=== PATIENT | male | born 1950 | race Caucasian/White ===

== ENCOUNTER 2019-07-26 11:52 | Observation (INO) | payer MEDICARE, OTHER ==
[~2019-07-26] VITALS: Ht 172.7 cm; Wt 72.6 kg
[2019-07-26 11:53] VITALS: BP 98/64
[2019-07-26] MEDS ORDERED: ASA81BEC PO (12:03)
[2019-07-26] MEDS ORDERED: LIPITOR20 MG PO (12:04)
[2019-07-26] MEDS ORDERED: BRILINTA90 MG PO (12:04)
[2019-07-26] MEDS ORDERED: COZAAR 25 MG TA25 MG PO (12:04)
[2019-07-26] MEDS ORDERED: NORVASC 2.5 MG2.5 M1 PO (12:05)
[2019-07-26] MEDS ORDERED: MICROZIDE12.5 MG PO (12:05)
[2019-07-26] MEDS ORDERED: PLAQUENIL200 MG PO (12:07)
[2019-07-26 12:20] LABS: ABSOLUTE EOSINOPHILS 0.1 thou/uL (0.0-0.7); ABSOLUTE LYMPHOCYTES 1.2 thou/uL (0.8-5.3); ABSOLUTE MONOCYTES 0.4 thou/uL (0.0-1.2); ABSOLUTE NEUTROPHILS 5.4 thou/uL (1.6-8.1); BASOPHILS 0.5 %; EOSINOPHILS 1.7 %; HEMATOCRIT 40.7 % (42.0-52.0); MCHC 34.5 g/dL (28.0-37.0); MCV 92.9 fL (80.0-100.0); MONOCYTES 6.2 %; MPV 8.5 fl. (7.2-11.1); NUCLEATED RBCS 0 /100WBC; PLATELET COUNT* 244 thou/uL (150-400); POLYS 74.6 %; RBC 4.38 mil/uL (4.50-6.00); RDW-CV 13.3 % (10.5-14.5); WBC 7.2 thou/uL (4.0-11.0)
[2019-07-26 12:30] LABS: CALCIUM 8.1 mg/dL (8.5-10.1); CREATININE 1.1 mg/dL (0.6-1.3)
[2019-07-26 12:34] LABS: POTASSIUM 2.6 mmol/L (3.5-5.1)
[2019-07-26 12:35] LABS: ALBUMIN 3.4 g/dL (3.4-5.0); TOTAL BILIRUBIN 0.6 mg/dL (<0.1-1.0)
[2019-07-26 15:14] LABS: URINE BILIRUBIN NEGATIVE (Negative); URINE BLOOD NEGATIVE (Negative); URINE CLARITY CLEAR; URINE COLOR YELLOW; URINE GLUCOSE-RANDOM NEGATIVE (Negative); URINE KETONES NEGATIVE (Negative); URINE LEUKOCYTES-REFLEX NEGATIVE (Negative); URINE NITRITE-REFLEX NEGATIVE (Negative); URINE PROTEIN NEGATIVE (Negative); URINE SPECIFIC GRAVITY 1.015 (1.005-1.030); URINE UROBILINOGEN 0.2 E.U./dl (0.2-1.0)
[2019-07-26 16:12] VITALS: BP 120/75
[2019-07-26 18:20] VITALS: BP 115/75
--- NOTE | 2019-07-26 18:35 | NUR ---
PT ORIENTED TO ROOM AND UNIT. BED LOW AND LOCKED, SIDE RIALS UPX3 CALL LIGHT IN REACH. TELE APPLIED.
[2019-07-26 20:20] VITALS: BP 116/78
[2019-07-27 03:54] LABS: MAGNESIUM 1.9 mg/dL (1.8-2.4); PHOSPHORUS* 2.9 mg/dL (2.5-4.9)
[2019-07-27 04:00] VITALS: BP 108/62
--- NOTE | 2019-07-27 04:23 | NUR ---
PT TELE JUST PRIOR TO MIDNIGHT SR/SB W/1ST AVB. THEN 0400 CHECK APPEARED TO BE CHANGED FROM THAT SO WENT AHEAD AND DID AM ORDERED EKG AND IT SHOWED ACC. JUNCTIONAL RHYTHM HR 72. PT ASYMPTOMATIC WITH. CALL PLACED TO DR. FORBES TO MAKE HER AWARE AND ADD ON BMP. SHE SAID CARDS SHOULD SEE HIM THIS MORNING BUT SHOULD PT BECOME SYMPTOMATIC, STAT EKG AND CALL HER BACK TO CHANGE POC. PT HAS REMAINED NPO SINCE MIDNIGHT AND NOT VERY HAPPY WITH IT BUT COMPLIANT.
[2019-07-27 06:10] LABS: POTASSIUM 2.9 mmol/L (3.5-5.1)
[2019-07-27 07:45] VITALS: BP 104/67
[2019-07-27] MEDS ORDERED: POTASSIUM20 PO (12:10)
[2019-07-27 12:31] VITALS: BP 121/71
--- NOTE | 2019-07-27 12:31 | EKG ---
[place] [address] ELECTROCARDIOGRAM REPORT Name: MARCIA NAPOLES Room: [address]R.#: [id number] Admission: 07/26/19 Attend Phys: Lei Decker Discharge: Date of : 48 Report #: [id number] THIS REPORT FOR: //name// [facility] Test Date: 2019-07-27 Test Time: 10:55:50 Pat Name: MARCIA NAPOLES Department: Room: [place] [address] Gender: M Billing Administrator: : 1950 Requested By: Lei Zayas Order Number: [id number] Fina MD: Rudolph Bower Measurements Intervals [place] Rate: 61 P: -21 KS: 251 QRS: -44 QRSD: 103 T: 23 QT: 432 QTc: 435 Interpretive Statements Sinus rhythm Prolonged [place] interval Left axis deviation Abnormal R-wave progression, late transition Baseline wander in lead(s) V1,V2,V4,V5,V6 No previous ECG available for comparison Electronically Signed On 07-27-2019 12:30:37 INTRANET SPECIALIST by Rudolph Bower [email or web address] <ELECTRONICALLY SIGNED> By: Rudolph Bower MD, FAC 07/27/19 1230 1055 1055 Rudolph Bower MD, [facility] /EPI
[2019-07-27 14:50] VITALS: BP 121/71
[2019-07-27 15:22] LABS: CALCIUM 8.8 mg/dL (8.5-10.1); CREATININE 1.1 mg/dL (0.6-1.3); POTASSIUM 3.8 mmol/L (3.5-5.1)
--- NOTE | 2019-07-27 15:59 | NUR ---
RECEVIED REPORT. ASSUMED CARE OF PT AROUND 729. PT A&O X4. VSS. DATA KEYER IN PLACE TRACING SR WITH 1ST DEGREE TO SR WITH 1ST DEGREE AND A BBB. AM ASSESSMENT AND VITALS COMPLETED CHARTED. IV INTACT. MEDS PER EMAR. PT HOPING TO GO HOME. AT BEDSIDE. POTASSIUM REPLACED ORDERED. DISCHARGE ORDERS RECEIVED. DISCHARGE COMPLETED DOCUMENTED. DISCHARGE SUMMARY, AND CARE NOTES GONE OVER WITH PT, PT COMMUNICATES UNDERSTANDING. SCRIPT SENT TO PT'S PHARMACY. IV AND DATA KEYER REMOVED. ALL BELONGINGS GATHERED AND SENT HOME WITH THE PT. PT LEFT UNIT WALKING WITH NURSING STAFF.PT LEFT HOSPITAL IN CAR WITH SPOUSE.
--- NOTE | 2019-07-28 10:25 | CON ---
[address] [address] CONSULTATION Name: MARCIA NAPOLES Room: [address] Jacqueline Gimenez#: [id number] Admission: 07/26/19 Attend Phys: Lei Decker Discharge: 07/27/19 Date of : 48 Report #: [id number] THIS REPORT FOR: //name// CC: Dr. Wilfrido Dong DO DATE OF SERVICE: 07/27/2019 INDICATION: Near syncope. HISTORY OF PRESENT ILLNESS: The patient is a very pleasant 69-year-old gentleman with a history of coronary artery disease diagnosed in 02/2019. At that time, he had a non-ST elevation myocardial infarction. On 02/27/2019, he had percutaneous coronary intervention and stent placement to the right coronary artery. He had percutaneous coronary intervention and stenting of the LAD in staged fashion on 03/24/2019. He remains on dual antiplatelet therapy. Symptoms at the time of his initial non-ST elevation myocardial infarction included belching, queasiness, and abdominal discomfort without specific chest pain. The patient reports an episode of near syncope yesterday. He recently completed cardiac rehabilitation and was starting a gym membership at a local gym. He and his presented to the gym at approximately 11:00. He walked around the track for 14 minutes and then sat on a bench when he began to feel somewhat queasy and dizzy. At this point, he decided he likely should go home. He walked up some stairs to find his who was finishing her exercises. He sat back down on a bench at that time waiting for her to complete exercise, at which time he became more queasy and lightheaded. He became near syncopal and rolled off the bench onto his right shoulder. He was unable to get back on all fours and sit back on the bench. Despite this, he continued to feel quite queasy and sleepy. The patient's reports him being very pale, but not diaphoretic. EMS was summoned and arrived at the scene and transported him to the hospital for further evaluation. Throughout this, he denied any chest pain. He was trying some deep breathing, which he has found relieves his uneasy queasy feelings typically, but did not this time. Historically, he has been having minor queasy episodes on a daily or every other day basis, lasting approximately 30 seconds, but reports these cornelio after taking a few deep breaths. Cardiac risk factors include hypertension and family history of coronary artery disease. The patient states he has not had high cholesterol traditionally. He is currently on a low-dose atorvastatin. A 12-lead EKG on arrival showed a sinus bradycardia with first-degree AV block with a [place] interval of [address] or T-wave abnormalities were noted. Subsequent EKGs and telemetry monitoring [place] [address] CONSULTATION Name: MARCIA NAPOLES Room: [place] [address] LLOYD Gimenez#: [id number] Admission: 07/26/19 Attend Phys: Lei Decker Discharge: 07/27/19 Date of : 48 Report #: [id number] in the 70s with retrograde conduction noted. Cardiac enzymes have been unremarkable. PAST MEDICAL HISTORY: 1. Coronary artery disease with recent intervention as outlined above. 2. Hypertension. 3. History of type 1 second-degree AV block. 4. Herniorrhaphy remotely. 5. Bilateral cataract surgery. ALLERGIES: None. HOME MEDICATIONS: Amlodipine 2.5 mg daily, aspirin 81 mg daily, atorvastatin 20 mg daily, hydrochlorothiazide 12.5 mg daily, Plaquenil 200 mg daily, losartan 25 mg daily, Brilinta 90 mg b.i.d. SOCIAL HISTORY: The patient is a lifelong nonsmoker. Drinks alcohol occasionally. He is and his is in attendance with him. FAMILY HISTORY: The patient's maternal relatives had coronary artery disease. The patient's mother with Alzheimer's and father with a cancer. PHYSICAL EXAMINATION: VITAL SIGNS: Stable. Blood pressure 104/67, pulse 62. GENERAL: This is a pleasant gentleman, in no distress. Mood and affect appropriate. HEENT: Extraocular muscles intact. Mucous membranes are moist. NECK: Shows no jugular venous distention. There are no carotid bruits. CHEST: Reveals clear lung tracy without wheezes or rales. CARDIOVASCULAR: Reveals a regular rhythm. I do not appreciate gallop or murmur. ABDOMEN: Reveals normal bowel sounds. The abdomen is soft and nontender. EXTREMITIES: Shows no edema. Peripheral pulses are 2+ and palpable. SKIN: Warm and dry. LABORATORY DATA: Reviewed. Sodium 140, potassium 2.9, chloride 102, bicarb 25, BUN 16, creatinine 1.0. Serum glucose 101. LFTs are within normal limits. Troponins less than 0.06 on three separate occasions. White blood cell count 7.2, hemoglobin 14.0, platelet count 244,000. Chest x-ray shows no acute cardiopulmonary abnormality. IMPRESSION AND RECOMMENDATIONS: 1. Near syncope. Etiology not entirely clear. The patient does have some evidence of atrioventricular block with current junctional rhythm. He has recently completed a 5-day event monitor with the results pending. He is to [address] [address] CONSULTATION Name: MARCIA NAPOLES Room: [address] Jacqueline Gimenez#: [id number] Admission: 07/26/19 Attend Phys: Lei anand jade Ott Discharge: 07/27/19 Date of : 48 Report #: [id number] follow up with his primary surveillance inspector in the near future regarding this. Blood pressure appears stable. I suspect he may have had either an episode of hypotension or bradycardia contributing to his near syncopal symptoms. At this point, I would have him follow up with his primary surveillance inspector regarding his 5-day event monitor. 2. Coronary artery disease, presently stable. Recent intervention as outlined above. He is on dual antiplatelet therapy, which I would continue. He is not having any symptoms to suggest acute coronary syndrome at this time. 3. Hypertension. Blood pressure low normal presently. He is on appropriate medications outlined above. 4. Hypokalemia, likely due to hydrochlorothiazide. I would recommend daily supplement of 20 mEq. We will start this in the hospital and offer replacement therapy as well. 5. Probable dyslipidemia. Continue atorvastatin at current dose. <ELECTRONICALLY SIGNED> By: Олег Taylor MD, [facility] 07/28/19 1025 1102 2143Michael Malcolm Taylor MD, FACC /nt
--- NOTE | 2019-07-28 12:18 | EKG ---
[place] [address] ELECTROCARDIOGRAM REPORT Name: MARCIA NAPOLES Room: [address]#: [id number] Admission: 07/26/19 Attend Phys: Lei Decker Discharge: 07/27/19 Date of : 48 Report #: [id number] THIS REPORT FOR: //name// [facility] ED Test Date: 2019-07-26 Test Time: 12:06:42 Pat Name: MARCIA NAPOLES Department: Room: [facility] Gender: M Water Use Inspector: [place] : 1950 Requested By: Reginaldo Sauceda Order Number: [id number] MD: Darrel Barrow Measurements Intervals [place] Rate: 57 P: -10 SC: 315 QRS: -64 QRSD: 112 T: 31 QT: 463 QTc: 451 Interpretive Statements Sinus rhythm Prolonged [place] interval LAD, consider left anterior fascicular block Abnormal R-wave progression, late transition No previous ECG available for comparison Electronically Signed On 07-28-2019 12:18:04 HOST AND HOSTESS by Darrel Barrow [email or web address] <ELECTRONICALLY SIGNED> By: Darrel Barrow MD, [facility] 07/28/19 1218 1206 1206 Darerl Barrow MD, [facility] /EPI
--- NOTE | 2019-07-28 12:29 | EKG ---
[place] [address] ELECTROCARDIOGRAM REPORT Name: MARCIA NAPOLES Room: [address]#: [id number] Admission: 07/26/19 Attend Phys: Lei Decker Discharge: 07/27/19 Date of : 48 Report #: [id number] THIS REPORT FOR: //name// [facility] Test Date: 2019-07-27 Test Time: 04:01:23 Pat Name: MARCIA NAPOLES Department: Room: [place] [address] Gender: M Registered Safety Engineer: ca : 1950 Requested By: Lei Zayas Order Number: [id number] Fina MD: Darrel Barrow Measurements Intervals [place] Rate: 72 P: NV: QRS: -19 QRSD: 98 T: 20 QT: 327 QTc: 358 Interpretive Statements Accelerated junctional rhythm Borderline left axis deviation Abnormal R-wave progression, late transition No previous ECG available for comparison Electronically Signed On 07-28-2019 12:29:00 COORDINATING PRODUCER by Darrel Barrow [email or web address] <ELECTRONICALLY SIGNED> By: Darrel Barrow MD, [facility] 07/28/19 1229 0401 040 Darrel Barrow MD, [facility] /EPI
== END 2019-07-27 15:55 | disposition home or self-care (01) ==
LOC: M.ERS 11:52 → M.2W 13:18 → M.TBA-ER 13:18 → M.2W 18:31
PROVIDERS: Emergency Medicine Emergency Medical Services; ADMIT Family Medicine
DX: R55 Syncope and collapse (principal); E87.6 Hypokalemia; I10 Essential (primary) hypertension; E78.5 Hyperlipidemia, unspecified; I25.10 Atherosclerotic heart disease of native coronary artery without angina pectoris; I49.9 Cardiac arrhythmia, unspecified; M06.9 Rheumatoid arthritis, unspecified

== ENCOUNTER → 2020-01-18 | Outpatient (CLI) | payer OTHER ==
[~2020-01-18] MED LIST: ASA81BEC PO; BRILINTA90 MG PO; COZAAR 25 MG TA25 MG PO; LIPITOR20 MG PO; MICROZIDE12.5 MG PO; NORVASC 2.5 MG2.5 M1 PO; PLAQUENIL200 MG PO; POTASSIUM20 PO
--- NOTE | 2020-01-18 13:33 | 2DMMODE ---
[place] [address] 2 D/M-MODE ECHOCARDIOGRAM Name: MARCIA NAPOLES Room: [facility]#: [id number] Admission: 01/18/20 Attend Phys: Twin Gallagher MD Discharge: Date of : 48 Date of Service: 01/18/20 1332 Report #: [id number] THIS REPORT FOR: cc: Ayla Williamson Stephanie P. DO Holkins, John M. MD [facility] ~ APPROVED REPORT Study performed: 01/18/2020 09:05:44 EXAM: Comprehensive 2D, Doppler, and color-flow Echocardiogram Patient Location: Out-Patient BSA: 1.87 HR: 62 bpm BP: 121/60 mmHg Other Information Study Quality: Good Indications CAD 2D Dimensions IVSd: 13.32 (7-11mm) LVOT Diam: 20.81 (18-24mm) LVDd: 47.73 mm PWd: 11.42 (7-11mm) Ascending Ao: 37.99 (22-36mm) LVDs: 25.22 (25-40mm) Aortic Root: 35.05 mm Volumes Left Atrial Volume (Systole) LA ESV Index: 15.60 mL/m2 Aortic Valve AoV Peak Rick.: 1.12 m/s AO Peak Gr.: 5.05 mmHg LVOT Max P.43 mmHg AO Mean Gr.: 2.73 mmHg LVOT Mean P.20 mmHg LVOT Max V: 1.05 m/s AO V2 VTI: 24.03 cm LVOT Mean V: 0.68 m/s ROVERTO (VTI): 3.12 cm2 LVOT V1 VTI: 22.07 cm Mitral Valve E/A Ratio: 0.54 [place] [address] 2 D/M-MODE ECHOCARDIOGRAM Name: MARCIA NAPOLES Room: [facility]#: [id number] Admission: 01/18/20 Attend Phys: Twin Gallagher MD Discharge: Date of : 48 Date of Service: 01/18/20 1332 Report #: [id number] MV Decel. Time: 244.49 ms MV E Max Rick.: 0.42 m/s MV PHT: 70.90 ms MVA (PHT): 3.10 cm2 TDI E/Lateral E': 5.25 E/Medial E': 7.00 Medial E' Rick.: 0.06 m/s Lateral E' Rick.: 0.08 m/s Pulmonary Valve PV Peak Rick.: 0.91 m/s PV Peak Gr.: 3.34 mmHg Tricuspid Valve RAP Estimate: 5.00 mmHg TR Peak Gr.: 18.51 mmHg RVSP: 23.51 mmHg PA Pressure: 23.51 mmHg Left Ventricle The left ventricle is normal size. There is normal LV segmental wall motion. Mild concentric left ventricular hypertrophy. Left ventricular systolic function is normal. The left ventricular ejection fraction is within the normal range. LVEF is 55-60%. Grade I - abnormal relaxation pattern. Right Ventricle The right ventricle is normal size. The right ventricular systolic function is normal. Atria The left atrium size is normal. The right atrium size is normal. Aortic Valve Mild aortic valve sclerosis. Mild aortic regurgitation. There is no aortic valvular stenosis. Mitral Valve Mild mitral annular calcification. Mild mitral regurgitation. No evidence of mitral valve stenosis. Tricuspid Valve The tricuspid valve is normal in structure. Mild tricuspid [place]urgitation[place] [address] 2 D/M-MODE ECHOCARDIOGRAM Name: MARCIA NAPOLES Room: [facility]#: [id number] Admission: 01/18/20 Attend Phys: Twin Gallagher MD Discharge: Date of : 48 Date of Service: 01/18/20 1332 Report #: [id number] The pulmonary valve is normal in structure. There is no pulmonic valvular regurgitation. Great Vessels The aortic root is normal in size. IVC is normal in size and collapses >50% with inspiration. Pericardium There is no pericardial effusion. <Conclusion> The left ventricle is normal size. Mild concentric left ventricular hypertrophy. Left ventricular systolic function is normal. The left ventricular ejection fraction is within the normal range. LVEF is 55-60%. Grade I - abnormal relaxation pattern. The right ventricle is normal size. The left atrium size is normal. Mild aortic valve sclerosis. Mild aortic regurgitation. There is no aortic valvular stenosis. Mild mitral annular calcification. Mild mitral regurgitation. No evidence of mitral valve stenosis. The tricuspid valve is normal in structure. Mild tricuspid regurgitation. IVC is normal in size and collapses >50% with inspiration. There is no pericardial effusion. There is normal LV segmental wall motion. <ELECTRONICALLY SIGNED> By: Darrel Barrow MD, FACC 01/18/20 133 31 31 Darrel Barrow MD, FACC /INF
== END ==
LOC: M.CRD 08:48
PROVIDERS: ATTEND Orthopaedic Surgery
DX: I08.3 Combined rheumatic disorders of mitral, aortic and tricuspid valves (principal); I25.10 Atherosclerotic heart disease of native coronary artery without angina pectoris

== ENCOUNTER → 2021-02-28 | Outpatient (CLI) | payer OTHER ==
[2021-02-28 08:50] LABS: CALCIUM 8.6 mg/dL (8.5-10.1); POTASSIUM 4.2 mmol/L (3.5-5.1)
== END ==
LOC: M.LAB 08:21
PROVIDERS: ATTEND Internal Medicine Cardiovascular Disease
DX: I10 Essential (primary) hypertension (principal); E87.6 Hypokalemia

== ENCOUNTER → 2021-06-18 | Outpatient (CLI) | payer OTHER ==
[2021-06-18 13:31] LABS: ALBUMIN 3.7 g/dL (3.4-5.0); CALCIUM 8.6 mg/dL (8.5-10.1); CREATININE 0.9 mg/dL (0.6-1.3); MAGNESIUM 2.2 mg/dL (1.8-2.4); POTASSIUM 4.1 mmol/L (3.5-5.1); TOTAL BILIRUBIN 0.5 mg/dL (<0.1-1.0); TOTAL PROTEIN 7.3 g/dL (6.4-8.2)
== END ==
LOC: M.LAB 13:05
PROVIDERS: ATTEND Nurse Practitioner
DX: I44.30 Unspecified atrioventricular block (principal); I10 Essential (primary) hypertension

== ENCOUNTER → 2021-07-01 | Outpatient (CLI) | payer OTHER ==
--- NOTE | 2021-07-01 11:13 | 2DMMODE ---
[place] [address] 2 D/M-MODE ECHOCARDIOGRAM Name: MARCIA NAPOLES Room: [facility]#: [id number] Admission: 07/01/21 Attend Phys: Georgina Pak, Discharge: Date of : 48 Date of Service: 07/01/21 1113 Report #: [id number] THIS REPORT FOR: cc: FAM - No family physician/PCP FAM - No family physician/PCP Rudolph Bower MD [facility] ~ APPROVED REPORT Study performed: 07/01/2021 09:08:15 EXAM: Comprehensive 2D, Doppler, and color-flow Echocardiogram Patient Location: Out-Patient BSA: 1.89 HR: 52 bpm BP: 123/61 mmHg Other Information Study Quality: Good Indications Dyspnea 2D Dimensions IVSd: 11.47 (7-11mm) LVOT Diam: 20.50 (18-24mm) LVDd: 49.44 mm PWd: 11.08 (7-11mm) Ascending Ao: 40.03 (22-36mm) LVDs: 27.43 (25-40mm) Aortic Root: 38.13 mm Volumes Left Atrial Volume (Systole) LA ESV Index: 15.90 mL/m2 Aortic Valve AoV Peak Rick.: 1.19 m/s AO Peak Gr.: 5.62 mmHg LVOT Max P.36 mmHg AO Mean Gr.: 2.92 mmHg LVOT Mean P.34 mmHg LVOT Max V: 1.16 m/s AO V2 VTI: 23.26 cm LVOT Mean V: 0.69 m/s ROVERTO (VTI): 3.73 cm2 LVOT V1 VTI: 26.29 cm AI Eaton: 1.71 m/s2 AI PHT: 634.35 [place] [address] 2 D/M-MODE ECHOCARDIOGRAM Name: MARCIA NAPOLES Room: [facility]#: [id number] Admission: 07/01/21 Attend Phys: Georgina Pak, Discharge: Date of : 48 Date of Service: 07/01/21 1113 Report #: [id number] Mitral Valve E/A Ratio: 0.62 MV Decel. Time: 325.29 ms MV E Max Rick.: 0.55 m/s MV PHT: 94.34 ms MVA (PHT): 2.33 cm2 TDI E/Lateral E': 6.11 E/Medial E': 7.86 Medial E' Rick.: 0.07 m/s Lateral E' Rick.: 0.09 m/s Pulmonary Valve PV Peak Rick.: 0.87 m/s PV Peak Gr.: 3.01 mmHg Left Ventricle The left ventricle is normal size. There is normal LV segmental wall motion. There is normal left ventricular wall thickness. Left ventricular systolic function is normal. The left ventricular ejection fraction is within the normal range. LVEF is 55-60%. Grade I - abnormal relaxation pattern. Right Ventricle The right ventricle is normal size. The right ventricular systolic function is normal. Atria The left atrium size is normal. The right atrium size is normal. Aortic Valve The aortic valve is normal in structure. Mild aortic regurgitation. There is no aortic valvular stenosis. Mitral Valve Moderate mitral annular calcification. The mitral valve is normal in structure. Mild mitral regurgitation. No evidence of mitral valve stenosis. Tricuspid Valve The tricuspid valve is normal in structure. There is no tricuspid valve regurgitation noted. Pulmonic Valve The pulmonary valve is normal in structure. [place] [address] 2 D/M-MODE ECHOCARDIOGRAM Name: MARCIA NAPOLES Room: [facility]#: [id number] Admission: 07/01/21 Attend Phys: Georgina Pak, Discharge: Date of : 48 Date of Service: 07/01/21 1113 Report #: [id number] Great Vessels Aortic root is mildly dilated. IVC is normal in size and collapses >50% with inspiration. Pericardium There is no pericardial effusion. <Conclusion> LVEF is 55-60%. Mild aortic regurgitation. Mild mitral regurgitation. Aortic root is mildly dilated. <ELECTRONICALLY SIGNED> By: Rudolph Bower MD, [facility] 07/01/21 111 12 12 Rudolph Bower MD, FAC /INF
== END ==
LOC: M.CRD 07:35
PROVIDERS: ATTEND Nurse Practitioner
DX: I08.0 Rheumatic disorders of both mitral and aortic valves (principal); I77.810 Thoracic aortic ectasia

== ENCOUNTER 2021-07-15 03:10 | Observation (INO) | payer OTHER ==
[~2021-07-15] VITALS: Ht 172.7 cm; Wt 73.5 kg
[2021-07-15] MEDS ORDERED: NORVASC10 MG (03:28)
[2021-07-15] MEDS ORDERED: ZETIA10 MG (03:29)
[2021-07-15] MEDS ORDERED: COZAAR 25 MG TA25 M1 PO (03:29)
[2021-07-15 03:31] VITALS: BP 139/54
[2021-07-15 03:48] LABS: ABSOLUTE BASOPHILS 0.1 thou/uL (0.0-0.2); ABSOLUTE EOSINOPHILS 0.3 thou/uL (0.0-0.7); ABSOLUTE LYMPHOCYTES 1.8 thou/uL (0.8-5.3); ABSOLUTE MONOCYTES 0.5 thou/uL (0.0-1.2); ABSOLUTE NEUTROPHILS 3.4 thou/uL (1.6-8.1); EOSINOPHILS 4.6 %; HEMATOCRIT 42.5 % (42.0-52.0); HEMOGLOBIN 14.2 gm/dL (14.0-18.0); LYMPHOCYTES 30.1 %; MCH 31.7 pg (26.0-34.0); MCHC 33.4 g/dL (28.0-37.0); MCV 95.1 fL (80.0-100.0); MONOCYTES 8.9 %; MPV 8.6 fl. (7.2-11.1); NUCLEATED RBCS 0 /100WBC; PLATELET COUNT* 173 thou/uL (150-400); POLYS 55.4 %; RBC 4.47 mil/uL (4.50-6.00); RDW-CV 14.2 % (10.5-14.5); WBC 6.1 thou/uL (4.0-11.0)
[2021-07-15 04:02] LABS: CALCIUM 8.6 mg/dL (8.5-10.1); POTASSIUM 4.4 mmol/L (3.5-5.1)
[2021-07-15 04:07] LABS: ALBUMIN 3.5 g/dL (3.4-5.0); MAGNESIUM 2.2 mg/dL (1.8-2.4); TOTAL BILIRUBIN 0.5 mg/dL (<0.1-1.0); TOTAL PROTEIN 6.6 g/dL (6.4-8.2)
--- NOTE | 2021-07-15 08:24 | EKG ---
[place] [address] ELECTROCARDIOGRAM REPORT Name: MARCIA NAPOLES Room: [address]#: [id number] Admission: 07/15/21 Attend Phys: Stef Kim Discharge: Date of : 48 Date of Service: 07/15/21 0323 Report #: [id number] THIS REPORT FOR: //name// [facility] ED Test Date: 2021-07-15 Test Time: 03:23:02 Pat Name: MARCIA NAPOLES Department: Room: [facility] Gender: M Division Road Supervisor: NIC : 1950 Requested By: Mary Avelar Order Number: [id number] MD: Rudolph Bower Measurements Intervals [place] Rate: 49 P: -59 [place]: 329 QRS: -66 QRSD: 105 T: 15 QT: 504 QTc: 456 Interpretive Statements Sinus rhythm with 2nd degree AV block Mobitz type I LAD, consider left anterior fascicular block Abnormal R-wave progression, late transition Compared to ECG 07/27/2019 10:55:50 2nd degree AV block Mobitz type I block noted Electronically Signed On 07-15-2021 8:24:02 DATA GOVERNANCE CONSULTANT by Rudolph Bower [email or web address] <ELECTRONICALLY SIGNED> By: Rudolph Bower MD, [facility] 07/15/21 0824 2 2 Rudolph Bower MD, [facility] /EPI
[2021-07-15 08:47] VITALS: BP 135/63
[2021-07-15 10:49] VITALS: BP 135/63
[2021-07-15 14:35] VITALS: BP 136/71; BP 140/69
--- NOTE | 2021-07-15 18:18 | EKG ---
[place] [address] ELECTROCARDIOGRAM REPORT Name: MARCIA NAPOLES [address] [id number] Admission: 07/15/21 Attend Phys: Stef Kim Discharge: Date of : 48 Date of Service: 07/15/21 1755 Report #: [id number] THIS REPORT FOR: //name// [facility] Test Date: 2021-07-15 Test Time: 17:55:42 Pat Name: MARCIA NAPOLES Department: Room: [place] [address] Gender: M Chief Wellness Officer: JERARDO : 1950 Requested By: Rudolph Bower Order Number: [id number] Fina MD: Rudolph Bower Measurements Intervals [place] Rate: 59 P: -32 [place]: 219 QRS: -75 QRSD: 193 T: 86 QT: 528 QTc: 524 Interpretive Statements Atrial-sensed ventricular-paced rhythm No further analysis attempted due to paced rhythm Compared to ECG 07/15/2021 03:23:02 ventricular paced beats now noted Electronically Signed On 07-15-2021 18:18:44 SYSTEMS NAVIGATOR by Rudolph Bower [email or web address] <ELECTRONICALLY SIGNED> By: Rudolph Bower MD, FACC 07/15/21 1818 175 175 Rudolph Bower MD, FAC /EPI
--- NOTE | 2021-07-15 18:19 | EKG ---
[place] [address] ELECTROCARDIOGRAM REPORT Name: MARCIA NAPOLES Room: [address]#: [id number] Admission: 07/15/21 Attend Phys: Stef Kim Discharge: Date of : 48 Date of Service: 07/15/21 1757 Report #: [id number] THIS REPORT FOR: //name// [facility] Test Date: 2021-07-15 Test Time: 17:57:21 Pat Name: MARCIA NAPOLES Department: Room: [place] [address] Gender: M Voting Machine Repairer: JERARDO : 1950 Requested By: Rudolph Bower Order Number: [id number] MD: Rudolph Bower Measurements Intervals [place] Rate: 81 P: 102 [place]: 130 QRS: -76 QRSD: 187 T: 85 QT: 498 QTc: 579 Interpretive Statements A-V dual-paced rhythm with some inhibition No further analysis attempted due to paced rhythm Baseline wander in lead(s) II,III,aVF Compared to ECG 07/15/2021 17:55:42 Atrial paced beats now noted Electronically Signed On 07-15-2021 18:19:21 MIXER HELPER by Rudolph Bower [email or web address] <ELECTRONICALLY SIGNED> By: Rudolph Bower MD, FACC 07/15/21 1819 56 56 Rudolph Bower MD, [facility] /EPI
[2021-07-15 18:30] VITALS: BP 136/71
--- NOTE | 2021-07-16 13:32 | CON ---
[address] [address] CONSULTATION Name: MARCIA NAPOLES Room: [address] Jacqueline Gimenez#: [id number] Admission: 07/15/21 Attend Phys: Kirk Lemos Discharge: 07/15/21 Date of : 48 Report #: [id number] THIS REPORT FOR: cc: Олег Taylor MD [facility] Олег Taylor MD [facility] Rudolph Bower MD [facility] ~ DATE OF CONSULTATION: 07/15/2021 CARDIOLOGY CONSULTATION HISTORY OF PRESENT ILLNESS: The patient is a 71-year-old white male who I was asked to see in the Emergency Room today after he was noted to have heart block. The history dates back to 02/2019. He was having chest pain and underwent a cardiac catheterization at [facility]. He had a stent placed in circumflex artery. He was noted to have another stenosis and was readmitted several weeks later and had another coronary stent placed at [facility]. He has done well since that time. However, he is not very active at this time. He continues to see my partner, Dr. Taylor in the Cardiology Clinic. He last saw Dr. Taylor's nurse practitioner a month ago. At that time, he complained of lightheadedness. In the office a month ago, he was noted to have second-degree AV block, Mobitz type 1. A groundwater monitoring technician was placed. Last night, the monitor showed episodes of high-degree AV block. He was told to come to the hospital and admitted for further evaluation and treatment. He denies recent chest pain, shortness of breath, fever, cough or lower extremity edema. He does complain of episodes where he feels lightheaded, but he has never passed out or had to sit down. PAST MEDICAL HISTORY: Otherwise, significant for cataract extraction, hernia repair, tonsillectomy, hypertension, hyperlipidemia, rheumatoid arthritis. No diabetes. CURRENT MEDICATIONS: Include atorvastatin, Zetia, Plaquenil, losartan, omeprazole, aspirin. ALLERGIES: He has no known drug allergies. FAMILY HISTORY: He has had several family members of a heart attack. SOCIAL HISTORY: He is . He and his live in [place]. 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 No smoking. Rarely drinks alcohol. REVIEW OF SYSTEMS: No history of stroke, asthma, liver disease, kidney disease, cancer, psychiatric illness or chronic skin condition. PHYSICAL EXAMINATION: [place] [address] CONSULTATION Name: MARCIA NAPOLES Room: [address]#: [id number] Admission: 07/15/21 Attend Phys: Kirk Lemos Discharge: 07/15/21 Date of : 48 Report #: [id number] GENERAL: Revealed an elderly male, appeared in no distress. VITAL SIGNS: He had a blood pressure of 120/60, pulse is 60. HEENT: He was anicteric. Conjunctivae pink. Mucous membranes moist. NECK: Veins not distended. Carotid bruit was noted. Neck was supple. CHEST: Clear to auscultation. CARDIAC: Regular, bradycardia. No significant murmur. ABDOMEN: Soft. EXTREMITIES: Had no edema. Dorsalis pedis pulse 3+ bilaterally. SKIN: Cool and dry. NEUROLOGIC: Nonfocal. IMAGING DATA: On the monitor last night, the patient was in sinus rhythm with a first-degree AV block. There were episodes of second-degree AV block, Mobitz type 2. His ECG showed sinus bradycardia with second-degree AV block, Mobitz type 2. The patient had an echocardiogram performed in 12/2019 that showed ejection fraction 60% with mild mitral regurgitation. His echocardiogram done on 07/01 two weeks ago showed an ejection fraction of 60% with mild aortic and mitral regurgitation. His workup last night, he actually had a portable chest x-ray that showed normal heart size and clear lung tracy. LABORATORY DATA: Creatinine 1.0. High sensitivity troponin was 44. TSH 0.8, T4 of 0.7. Hemoglobin 14.2. His COVID antigen stat test was negative. IMPRESSION AND RECOMMENDATIONS: 1. High-degree AV block. Recommend permanent pacemaker. 2. Coronary artery disease. Previous stents. No recent angina. I would continue an aspirin a day. 3. Hyperlipidemia. The patient is on a statin drug and Zetia. 4. Rheumatoid arthritis. The patient followed by Rheumatology. 5. Hypertension. The patient is on an angiotensin receptor ying. 6. Carotid bruit. Recommend Doppler. <ELECTRONICALLY SIGNED> By: Rudolph Bower MD, [facility] 07/16/21 [id number] Bower MD, FACC /nt
--- NOTE | 2021-07-16 14:09 | CARD ---
[address] [address] CARDIAC CATH REPORT Name: MARCIA NAPOLES Room: [address] Ammy#: [id number] Admission: 07/15/21 Attend Phys: Kirk Lemos Discharge: 07/15/21 Date of : 48 Report #: [id number] THIS REPORT FOR: cc: Олег Taylor MD [facility] Олег Taylor MD [facility] Rudolph Bower MD [facility] ~ APPROVED REPORT Study performed: 07/15/2021 15:15:11 Patient Status: ED Room #: Event Personnel: MD Marsha Jeronimo, RN Alycia Luis,RN Gail Alonzo, TEMPORARY OFFICE ASSISTANT Exam: Insertion of Dual Chamber Permanent Pacemaker Indications: Mobitz I (Wenjosebach) The patient is a 71 year-old male with a history of Dizziness and vertigo. Patient Info Antiplatelet Therapy: aspirin Conscious Sedation Start time: 3:28 End Time: 4:35. Fentanyl 50.0 mcg Versed 4.0 mg Implanted Devices: permanent dual chamber mri compatible Biotronic pacemaker generator and leads Procedure The patient underwent informed consent. We discussed the details of the procedure including the risks, which include, but not limited to bleeding, infection, vascular damage, cardiac perforation, and pneumothorax. He understood these risks and was willing to proceed. As such, he was brought to the EP/Cardiac Catheterization laboratory in a fasting and sedated state and prepped and draped in a sterile fashion, received IV antibiotics prior to initiation of the procedure and a venogram was performed showing patency of the left axillary vein. The patient underwent conscious sedation, with no related complications. The patient was brought to the EP/Cardiac Catheterization laboratory and the left chest and shoulder were prepped and [place] [address] CARDIAC CATH REPORT Name: MARCIA NAPOLES Room: [address]#: [id number] Admission: 07/15/21 Attend Phys: Kirk Lemos Discharge: 07/15/21 Date of : 48 Report #: [id number] During this case, Fluoroscopy and visipaque 10cc were used for imaging. IV conscious sedation was used throughout procedure with appropriate monitoring and was performed in the presence of a registered nurse who was an independent trained observer other than the physician performing the procedure. The left subclavian region was infiltrated with 2% Lidocaine subcutaneous anesthesia. A transverse incision was made in the left upper chest cavity. The subcutaneous pocket was formed via blunt dissection. Percutaneous venous access was achieved and an introducer sheath was inserted into the left Subclavian vein. Sheaths were positions using the modified Seldinger technique Through the introducer sheaths the atrial and ventricular lead wires were positioned in the right atrial appendage and right ventricular apex respectively. Utilizing fluoroscopic guidance, the atrial and ventricular lead wires were advanced over the wires and positioned in the right atria and right ventricle respectively. Capturing and sensing thresholds were verified. Electrode Parameters P Wave: 5.0 mv R Wave: 14 mv Atrial Threshold: 0.8 V @ 0.4 ms Ventricular Threshold: 0.6 v @ 0.4 ms Atrial Resistance: 630 ohm Ventricular Resistance: 810 ohm Dual Chamber The atrial and ventricular leads were then secured using 0 silk sutures. The subcutaneous pocket was irrigated with ancef antibiotic solution.The atrial and ventricular leads were attached to the appropriate receptacles on the pulse generator and set screws firmly tightened to insure adequate contact and stability. The lead and pulse generator were placed into the subcutaneous pocket. Sharp and sponge counts were confirmed to be correct. At this time the pocket was closed subcutaneously with a 0 Vicryl and the skin was closed with a 4.0 Vicryl. The operative site was dressed in sterile fashion with skin affix and the patient was transferred to the floor in stable condition. Complications The patient tolerated the procedure well and there were no complications [place] [address] CARDIAC CATH REPORT Name: MARCIA NAPOLES Room: [address]#: [id number] Admission: 07/15/21 Attend Phys: Kirk Lemos Discharge: 07/15/21 Date of : 48 Report #: [id number] Findings Specimens Removed: No Estimated Blood Loss: less than 5cc Conclusion successful placement of a dual chamber pacemaker and leads <ELECTRONICALLY SIGNED> By: Rudolph Bower MD, FACC 07/16/211407 07 07Dapierer Bower MD, FACC /INF
== END 2021-07-15 18:35 | disposition home or self-care (01) ==
LOC: M.ERS 03:10 → M.TBA-ER 04:47 → M.TBA-CV 14:36
PROVIDERS: Emergency Medicine; ADMIT Internal Medicine; ATTEND Internal Medicine
DX: I44.2 Atrioventricular block, complete (principal); I25.2 Old myocardial infarction; I10 Essential (primary) hypertension; E78.5 Hyperlipidemia, unspecified; R42 Dizziness and giddiness; I25.10 Atherosclerotic heart disease of native coronary artery without angina pectoris; R01.1 Cardiac murmur, unspecified; Z79.82 Long term (current) use of aspirin; Z79.899 Other long term (current) drug therapy